=== PATIENT | female | born 2000 | race American Indian/Alaskan Native ===

== ENCOUNTER 2019-08-19 23:42 | Emergency (ER) | payer OTHER ==
[~2019-08-19] VITALS: Ht 154.9 cm; Wt 49.9 kg
[~2019-08-19 23:42] MED LIST: CEPHALEXIN500 MG PO
== END 2019-08-20 02:21 | disposition home or self-care (01) ==
LOC: ED 23:42
DX: R10.31 Right lower quadrant pain (principal); F17.200 Nicotine dependence, unspecified, uncomplicated
CPT/HCPCS: 74177; 80053; 81001; 83690; 84703; 85025; 99284-25; Q9967